=== PATIENT | female | born 1975 | race Caucasian/White ===

== ENCOUNTER 2018-08-02 08:58 | Day surgery (SDC) | payer BC, OTHER ==
[~2018-08-02] VITALS: Ht 174 cm; Wt 69.9 kg
--- NOTE | 2018-08-02 07:06 | Anethesia Preoperative Eval ---
Anesthesia Pre-op PMH/ROS General Date of Evaluation: Aug 02, 2018 Time of Evaluation: 07:04 Anesthesiologist: ayden ASA Score: ASA 2 Mallampati Score Class I : Soft palate, uvula, fauces, pillars visible Class II: Soft palate, uvula, fauces visible Class III: Soft palate, base of uvula visible Class IV: Only hard plate visible Mallampati Classification: Class II Surgeon: antwan Diagnosis: blood in stool Surgical Procedure: colonoscopy Social History: smoking - former smoker Family History: no anesthesia problems Allergies: Coded Allergies: No Known Allergies (Unverified , 04/14/16) Medications: see eMAR Patient NPO?: Yes Past Medical History Pulmonary: Reports: HARR[place] Other: obesity PSxH Narrative: , gastric sleeve placement, rhinoplasty Anesthesia Pre-op Phys. Exam Physician Exam ` Last Vital Signs Date Time Temp Pulse Resp B/P (MAP) Pulse Ox O2 Delivery O2 Flow Rate FiO2 08/02/18 09:43 Room Air 08/02/18 09:41 97.6 76 18 97/80 99 Constitutional: NAD Neurologic: CN 2-12 intact Cardiovascular: RRR Respiratory: CTA Gastrointestinal: S/NT/ND Airway Exam Mallampati Score: Class II MO: limited Neck: flexible TMD: 2fb ROM: limited Anesthesia Pre-op A/P Risk Assessment & Plan Assessment: asa2 Plan: mac Status Change Before Surgery: No Pre-Antibiotics Drug: Maggi Ryan MD Aug 02, 2018 07:06
[~2018-08-02 08:58] MED LIST: ASPIR 8181 MG ORAL; Atropine Inj 1mg/10ml Syr IV PRN; COQ PO; DiphenhydrAMINE 50mg/ml Inj IVP PRN; FISH OIL CAP1000 MG ORAL; MINIVELLE1 EAC1 TD; Midazolam 2mg/2ml Inj IVP PRN; VIT D PO; fentaNYL 100 mcg/2 mL IV PRN
--- NOTE | 2018-08-02 09:37 | Pre-Procedure Note/Attestation ---
Pre-Procedure Note/Attestation Complete Prior to Procedure Planned Procedure: not applicable Procedure Narrative: esophagogastroduodenoscopy and colonoscopy Indications for Procedure Pre-Operative Diagnosis: abd pain, h/o colon polyps Attestation I attest that I discussed the nature of the procedure; its benefits; risks and complications; and alternatives (and the risks and benefits of such alternatives ), prior to the procedure, with the patient (or the patient's legal passenger service representative). I attest that, if there was a reasonable possibility of needing a blood transfusion, the patient (or the patient's legal passenger service representative) was given the [facility] standardized written summary, pursuant to the Dayron Herrick Blood Safety Act ([place] Health and Safety Code # 1645, as amended). I attest that I re-evaluated the patient just prior to the surgery and that there has been no change in the patient's H&P, except as documented below: Iván Bundy MD Aug 02, 2018 09:37
[2018-08-02 09:41] VITALS: BP 97/80
[2018-08-02] MEDS ORDERED: Propofol 200mg/20ml IV ONE (10:00)
[2018-08-02] MEDS ORDERED: Lidocaine 1% MPF 10mg/ml 5ml ONE (10:00)
[2018-08-02] MEDS ORDERED: coQ 10 PO (10:00)
--- NOTE | 2018-08-02 10:04 | Short Stay Surgery H&P ---
History of Present Illness History of Present Illness Chief Complaint colonoscopy HPI Christine Costa is a 43 year old female who was admitted on for Blood In Stool Patient History Allergies: Coded Allergies: No Known Allergies (Unverified , 04/14/16) PAST MEDICAL HISTORY: (1) History of sleeve gastrectomy (2) Sleep apnea Medication History Scheduled Aspirin* (Aspir 81*), 81 MG ORAL DAILY, (Reported) Fish Oil (Fish Oil 1,000 mg Capsule), 1,000 MG ORAL DAILY, (Reported) [Vit D], 50,000 INTLU PO QWEEK, (Reported) [coQ 10], 1 TAB-CAP PO DAILY, (Reported) Discontinued Medications Estradiol (Minivelle), 1 EACH TD 2XW, (Reported) Discontinued Reason: Pt stopped taking med Review of Systems Cardiovascular: Reports: no symptoms Respiratory: Reports: no symptoms Skeletal: Reports: no symptoms Gastrointestinal: Reports: no symptoms Genitourinary: Reports: no symptoms Neurologic: Reports: no symptoms Endocrine: Reports: no symptoms Physical Exam Vital Signs Last Vital Signs Date Time Temp Pulse Resp B/P (MAP) Pulse Ox O2 Delivery O2 Flow Rate FiO2 08/02/18 09:43 Room Air 08/02/18 09:41 97.6 76 18 97/80 99 Labs Laboratory Tests Test 08/02/18 09:10 Urine HCG, Qualitative Negative (NEGATIVE) Skin: normal HENT: normal Heart: normal Lungs: normal Abdomen: normal Extremities: normal Plan Plan of Care colonoscopy Attestation Are the patient's medical conditions optimized for surgery? Attestation Response: yes Iván Bundy MD Aug 02, 2018 10:04
--- NOTE | 2018-08-02 10:32 | Endoscopy Procedure Note ---
Endoscopy Procedure Note General Indication for Procedure: h/o colon polyps Procedures Performed: colonoscopy Operative Findings/Diagnosis: one polyp Specimen: yes Pt Tolerated Procedure Well: Yes Estimated Blood Loss: none Anesthesia Anesthesiologist: ayden Anesthesia: MAC Inserted Devices Implant(s) used?: No Quality Quality of Bowel Preparation: Good Did scope reach the cecum?: Yes Was there any complications?: No GI Core Measures 50 yrs or older w/o bx or poly: No 10yrs. F/U not recommended: Yes If not recommended, why?: Above average risk 10 yrs. F/U needed: Yes 18 years or older w/prev. colo: Yes <3yrs. since last colonoscopy: No Iván Bundy MD Aug 02, 2018 10:32
[2018-08-02 10:41] VITALS: BP 93/53
[2018-08-02 10:50] VITALS: BP 101/59
[2018-08-02 11:00] VITALS: BP 100/50
[2018-08-02 11:05] VITALS: BP 95/55
--- NOTE | 2018-08-02 11:48 | Immediate Post-Op Evaluation ---
Immediate Post-Op Evalulation Immediate Post-Op Evalulation Procedure: colonoscopy w/bx Date of Evaluation: Aug 02, 2018 Time of Evaluation: 10:53 IV Fluids: 650ml 0.9ns Blood Products: none Estimated Blood Loss: negligible Blood Pressure Systolic: 93 Blood Pressure Diastolic: 49 Pulse Rate: 54 Respiratory Rate: 18 O2 Sat by Pulse Oximetry: 100 Temperature (Fahrenheit): 97.2 Pain Score (1-10): 0 Nausea: No Vomiting: No Complications none Patient Status: awake, reacts, patent Hydration Status: adequate Drug: Maggi Ryan MD Aug 02, 2018 11:48
--- NOTE | 2018-08-02 11:50 | 48 Hour Post Anesthesia Eval ---
Post Anesthesia Evaluation Procedure: colonoscopy w/bx Date of Evaluation: Aug 02, 2018 Time of Evaluation: 10:55 0: 59 Pulse Rate: 55 Respiratory Rate: 18 Temperature (Fahrenheit): 97.2 O2 Sat by Pulse Oximetry: 100 Airway: patent Nausea: No Vomiting: No Pain Intensity: 0 Hydration Status: adequate Cardiopulmonary Status: stable Mental Status/LOC: patient returned to baseline Post-Anesthesia Complications: none Follow-up care needed: N/A Maggi Newberry MD Aug 02, 2018 11:50
[2018-08-02 12:00] VITALS: BP 100/65
--- NOTE | 2018-08-02 16:30 | Procedure Note ---
DATE OF PROCEDURE: 08/02/2018 SURGEON: Iván Bundy M.D. PROCEDURE: Colonoscopy with biopsy. ANESTHESIA: Per Dr. Najera. INSTRUMENT: Olympus adult flexible colonoscope. INDICATION: History of colon polyps. The procedure, risks, benefits, and possible consequences, including hemorrhage, aspiration, perforation and infection, and alternative treatments, were explained to the patient/legal guardian by Dr. Iván Bundy and the patient/legal guardian understood and accepted these risks. DESCRIPTION OF PROCEDURE: After informed consent was obtained and the patient was adequately sedated. First rectal exam was performed, which was normal. Then, the scope was advanced from the rectum into the cecum and then subsequently to terminal ileum. Quality of prep was good. The patient had normal colonoscopy examination. One diminutive polyp was seen in the sigmoid colon, which was removed with the cold biopsy forceps technique. The rest of the colonoscopic exam grossly looked within normal limits. Retroflexion in the rectum showed evidence of few nonbleeding internal hemorrhoids. SUMMARY OF FINDINGS: 1. One diminutive polyp, otherwise normal colonoscopy examination. 2. Small internal hemorrhoids. RECOMMENDATIONS: Follow biopsy result and treat accordingly. I want to thank Dr. Anyi Clayton for this kind referral. Iván Bundy M.D. DR: IDALMIS JOB#: [id number] CC: Anyi Clayton M.D.
== END 2018-08-02 12:00 | disposition home or self-care (01) ==
LOC: GAS 08:58
DX: K63.5 Polyp of colon (principal); K64.8 Other hemorrhoids; Z90.49 Acquired absence of other specified parts of digestive tract; Z79.82 Long term (current) use of aspirin; G47.33 Obstructive sleep apnea (adult) (pediatric)
CPT/HCPCS: 45380; 81025; J2704; 94003; 94150